=== PATIENT | female | born 1940 | race Caucasian/White ===

== ENCOUNTER → 2020-06-15 10:59 | Outpatient (CLI) | payer OTHER, SELFPAY ==
[2020-06-16 17:48] LABS: COVID19 Sendout Not Detected (Not Detect)
== END ==
PROVIDERS: Visit Provider Nurse Practitioner
DX: Z11.59 Encounter for screening for other viral diseases (principal)
CPT/HCPCS: 87635

== ENCOUNTER 2020-06-18 10:59 | Day surgery (SDC) | payer OTHER, SELFPAY ==
[2020-06-17 08:20] VITALS: BMI 27.6
[2020-06-18] VITALS (7 sets, daily range): BP systolic 142–197; BP diastolic 67–81; PULSE 74–88; RESP 11–16; TEMP 35.9–36.2; O2SAT 85–95; BMI 25.1
--- NOTE | 2020-06-18 | PATH_ITS ---
[facility] Accession Number: [id number] . 01 Material submitted: . toe - RIGHT 5TH TOE . 01 Diagnosis: Right Fifth Toe, Amputation: Skin and soft tissue with focal new bone formation and marrow fibrosis, mild chronic inflammation, and reactive changes. Skin with focal hyperkeratosis and parakeratosis. Skin, soft tissue, and bone resection margins are viable. Negative for malignancy. MRV 06/22/2020 1409 Local . 01 Electronically signed: . Moraima Perry MD, Pathologist NPI- [id number] . 01 Gross description: . The specimen is received in formalin, labeled right fifth toe and consists of a 3.0 x 1.5 x 1.5 cm toe with a smooth resection margin. The skin is sauceda-pink and wrinkled, and the unguis is sauceda-yellow and slightly thickened, and measures 0.9 x 0.5 x 0.1 cm. The margin is inked blue, and the specimen is sectioned to reveal sauceda trabeculated cut surfaces. No masses or lesions are identified. Also, received are two additional fragments of sauceda trabeculated bone and sauceda soft tissue, measuring 2.0 x 1.0 x 0.6 cm in aggregate. Turn Down Man cross-sections are submitted, following decalcification, in cassettes A1-A2. ([id number]) /[facility] 06/21/20205 Local . 01 Pathologist provided ICD-10: S93.104A . 01 CPT . 297990, 271948 Performed at: [address], [place], [place] [id number] MD Papi David MD Phone: [phone]
--- NOTE | 2020-06-18 11:15 | PM.PREOP ---
Pre-operative Note COVID-19 COVID-19 status: Negative Interval Note History & Physical reviewed/Exam performed by Physician: Yes Changes to H&P: No
[2020-06-18] MEDS: LACTATED RINGERS 1,000 ML 42 ML IV (11:29)
[2020-06-18] MEDS: CEFAZOLIN 2 GM/100 ML FROZ.PIGGY IV (12:00)
--- NOTE | 2020-06-18 12:20 | SUR.OPER ---
Supine on padded OR bed, head on pillow, arms secured on padded arm boards at <90 degrees abduction, legs uncrossed, safety belt at thigh, tape over blanket over lower legs.
[2020-06-18] MEDS: BUPIVACAINE 0.25% W/ EPI 30 ML VIAL INJ (12:28)
[2020-06-18] MEDS: LABETALOL 20 MG/4 ML SYRINGE IV (12:51)
--- NOTE | 2020-06-18 12:55 | SUR.PHASEI ---
10mg of labetolol given ivp at [address] Gilman
--- NOTE | 2020-06-18 13:11 | P.OP_ITS ---
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 and rotated up back with the toe facing the heel. This is a new sent toe and makes shoe difficulty in walking painful. She has had recall ulcerations around the toe and notes previous infections. She is desiring elective amputation. She has been indicated for amputation of the 5th toe partially through the proximal phalanx or the MTP joint as indicated. This is a longstanding dislocation and there is contracture of the lateral skin at the level of amputation will depend on appropriate coverage. The risks and benefits of the procedure have been discussed with the patient even opportunity to ask questions. The risks of surgery include but are not limited to infection, malunion, nonunion, persistence of pain, damage to nerves and blood vessels, posttraumatic arthritis, DVT, PE, cardiopulmonary complications and . The patient expressed a thorough understanding of the risks and benefits of surgery and has elected to proceed. Consent was signed in the office. Surgeon: Ying Frankel Click Yes if Unassisted: Yes Anesthesia Type: General and Local Operative Notes Findings: Chronic right small toe deformity with dislocation of the PIP joint and rotation nearly 180? with the toe middle and distal phalanx lying next to the proximal phalanx Closure Type: primary Specimen(s): other (Toe to pathology) Estimated Blood Loss (mL): 5 Blood products transfused: none Tourniquet time (min): 13 Procedure in detail: Patient was seen in the preoperative area the site of SIRS marked informed consent confirmed. The patient was brought back to the o perating room by the anesthesia team placed supine on operative table. An SCD was on the contralateral lower extremity. All bony prominences well padded. General anesthesia was administered. A nonsterile ankle tourniquet was placed on the right leg. Right leg was prepped and draped in the standard sterile fashion. Formal time-out was performed confirming the patient's side and site of surgery administration of preoperative antibiotics. All were in agreement. Attention was turned to the right 5th toe this was extremely deformed and rotated nearly 180?. There was a contracture at the lateral soft tissues. C- arm was brought in to laura the level of presumed transection along the proximal phalanx. Then distally the skin flaps were planned. Once this was completed gravity exsanguination was utilized the tourniquet was elevated to 250 mm mercury and stayed there for 13 minutes. Sharp dissection with the scalpel was taken through the skin down to the level of the bone circumferentially around the toe. The toe was removed through the PIP joint and sent for pathology. Next the proximal phalanx head was exposed and the TTS saw was used to transect this. The flexor and extensor tendons were cut and allowed to retract. Neurovascular bundles were cut laterally tract. Wound was irrigated thoroughly with saline and then tourniquet was released hemostasis was achieved and the wounds closed in layers with 4 0 Monocryl and 3 O nylon suture. The wound closed well without tension. Sterile dressings were placed with Xeroform gauze and Leonidas wrap and an Eze bandage. Patient was woken from anesthesia and taken to recovery room in good condition. There no immediate complications from this procedure. All counts were correct. Complications: none Post-operative Condition: stable Disposition: PACU Plan for aftercare: Weightbear as tolerated in postop shoe flat foot or heel weight-bearing keep dressings clean dry and intact. Follow-up in 2 weeks for wound check and possible suture removal
== END 2020-06-18 13:37 | disposition home or self-care (01) ==
PROVIDERS: Referring Provider Orthopaedic Surgery Foot and Ankle Surgery; Visit Provider Orthopaedic Surgery Foot and Ankle Surgery
PROC: (CPT 28825; principal; 2020-06-18 12:00)
DX: S93.104A Unspecified dislocation of right toe(s), initial encounter (principal); M20.61 Acquired deformities of toe(s), unspecified, right foot; E11.9 Type 2 diabetes mellitus without complications; Z79.84 Long term (current) use of oral hypoglycemic drugs
CPT/HCPCS: 28825; J0690; J2405; J2704; J3010